=== PATIENT | female | born 1985 | race Caucasian/White ===

== ENCOUNTER 2024-02-29 19:45 | Emergency (ER) | payer MEDICAID, OTHER ==
[~2024-02-29] VITALS: Ht 172.7 cm; Wt 71.2 kg
[2024-02-29 20:47] LABS: Urine Bacteria None Seen /hpf (None Seen)
[2024-02-29 20:56] LABS: Urine Blood 1+ /uL (Negative); Urine Clarity Clear (Clear); Urine Color Light-Yellow (Yellow); Urine Protein, UAD Negative (Negative); Urine Specific Gravity 1.019 (1.001-1.035); Urine Squamous Epithelial Cell FEW /hpf (<5); Urine Urobilinogen Normal (Negative); Urine WBC 1 /hpf (0 - 5)
[2024-02-29 21:09] LABS: Amphetamine Screen, Urine Neg (NEGATIVE); Barbiturate Scree,Urine Neg (NEGATIVE); Benzodiazephine Screen, Urine Neg (NEGATIVE); Cannabinoid Screen, Urine Neg (NEGATIVE); Cocaine Screen, Urine Neg (NEGATIVE); Opiate Scree,Urine Neg (NEGATIVE); Phencyclidine Screen, Urine Neg (NEGATIVE)
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
[2024-02-29 21:32] LABS: Basophils # (auto) 0.1 10 ^3/uL (0-0.2); Basophils % (auto) 1.1 % (0.0-2.0); Eosinophils # (auto) 0.1 10 ^3/uL (0-0.8); Eosinophils % (auto) 1.3 % (0.0-7.0); Hematocrit 39.1 % (36.0-46.0); Hemoglobin 13.3 g/dL (12.2-16.2); Lymphocytes # (auto) 3.2 10 ^3/uL (0.4-5.4); Lymphocytes % (auto) 47.7 % (10.0-50.0); Mean Corpuscular Hemoglobin 33.4 pg (28.0-32.0); Mean Corpuscular Hgb Conc. 34.1 g/dL (32.0-36.0); Monocytes # (auto) 0.4 10 ^3/uL (0-1.3); Monocytes % (auto) 6.4 % (0.0-12.0); Neutrophils # (auto) 2.9 10 ^3/uL (1.6-8.6); Neutrophils % (auto) 43.5 % (37.0-80.0); Nucleated Red Blood Cells % 0.1 %; Platelet Count (auto) 300 10^3/uL (140-450); Red Blood Cells 3.99 10^6/uL (4.0-5.20); Red Cell Distribution Width 13.1 % (11.8-14.3); White Blood Cell 6.7 10^3/uL (4.4-10.8)
[2024-02-29] MEDS: LORazepam 0.5 MG TAB PO ONE (21:33)
[2024-02-29 21:34] LABS: Anion Gap 11 (5-15); Carbon Dioxide 24 mmol/L (20-31); Potassium 3.9 mmol/L (3.5-5.1); Sodium 143 mmol/L (136-145)
[2024-02-29 21:35] LABS: Calcium 9.5 mg/dL (8.7-10.4)
[2024-02-29 21:39] LABS: Glucose 89 mg/dL (74-106)
[2024-02-29 21:40] LABS: BUN/Creatinine Ratio 13.9 (10.0-20.0); Blood Alcohol 264.7 mg/dL (<10); Blood Urea Nitrogen 14 mg/dL (9-23)
[2024-02-29 21:41] LABS: Chloride 108 mmol/L (98-107)
[2024-02-29] MEDS: SODIUM CHLORIDE 0.9% 2,000 ML IV ONE (22:04)
[2024-02-29] MEDS: THIAMINE 100mg/ml INJ (200mg/2ml VIAL) IV ONE (22:05)
[2024-02-29] MEDS: ONDANSETRON ODT 4 MG TAB PO ONE (23:12)
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
[2024-03-01] MEDS: QUEtiapine FUMARATE 100 MG TAB PO ONE (03:12)
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
[2024-03-01] MEDS ORDERED: ACAM1TAB OR (19:17)
[2024-03-01] MEDS ORDERED: PROP60CA34 PO (19:17)
[2024-03-01] MEDS ORDERED: SERT50TA PO (19:17)
[2024-03-01] MEDS ORDERED: CLON0.1T PO (19:17)
--- NOTE | 2024-03-01 19:17 | ED.PDOC ---
Departure 1 Departure Time of Disposition: 19:11 (Dr. Teresa evaluated patient and recommends patient can be discharged and starting some new medications. Patient is feeling well and wants to go home and is no longer having any suicidal thoughts.) Impression: Primary Impression: Suicidal ideation Additional Impressions: Alcohol intoxication Qualified Codes: F10.920 - Alcohol use, unspecified with intoxication, uncomplicated Alcohol abuse Depression Qualified Codes: F32.A - Depression, unspecified Disposition: HOME / SELF CARE / HOMELESS Condition: Stable Additional Instructions: You were prescribed new medications. Please take as directed. You should follow up with your regular doctor and your psychiatrist within one week. If your symptoms worsen or you have any other concerns then please return to the ER. e-Prescriptions Acamprosate Calcium (ACAMPROSATE CALCIUM DR) 333 Mg Tab 333 MG OR TID for 30 Days, #90 TAB Prov: ELENA CASEY MD 03/01/24 Clonidine Hydrochloride (Clonidine Hcl) 0.1 Mg Tab 1 TAB PO QPM for 30 Days, #30 TAB 2 Refills Prov: ELENA CASEY MD 03/01/24 Sertraline Hcl (Zoloft) 50 Mg Tab 1 TAB PO QAM for 30 Days, #30 TAB 2 Refills Prov: ELENA CASEY MD 03/01/24 Propranolol Hcl (Inderal La) 60 Mg Cap 1 CAP PO QAM for 30 Days, #90 CAP 1 Refill Prov: ELENA CASEY MD 03/01/24 Discharged With: Self ELENA CASEY MD Mar 01, 2024 19:17
[2024-03-01 20:00] VITALS: BP 141/65; PULSE 62; RESP 17; TEMP 98.8; O2SAT 99
== END 2024-03-01 20:25 | disposition home or self-care (01) ==
LOC: ER 19:45
DX: F32.9 Major depressive disorder, single episode, unspecified (principal); F10.120 Alcohol abuse with intoxication, uncomplicated; R45.851 Suicidal ideations; Z79.899 Other long term (current) drug therapy; Y90.0 Blood alcohol level of less than 20 mg/100 ml
CPT/HCPCS: 36415; 80048; 80307; 80320; 81001; 85025; 96361; 96374; 99285; J3411; J7030; Q0162